=== PATIENT | male | born 1970 | race Caucasian/White ===

== ENCOUNTER 2021-02-06 05:17 | Day surgery (SDC) | payer BC ==
[2021-01-30 16:32] LABS: BASOPHILS % (AUTO) 0.5 % (0-1); EOSINOPHILS # (AUTO) 0.1 X10'3 (0-0.9); EOSINOPHILS % (AUTO) 0.7 % (0-6); LYMPHOCYTES # (AUTO) 2.2 X10'3 (1.1-4.8); LYMPHOCYTES % (AUTO) 25.9 % (21-51); MEAN CORPUSCULAR HEMOGLOBIN 32.3 PG (27.0-31.0); MEAN CORPUSCULAR HGB CONC 34.4 g/dL (33.0-36.5); MEAN PLATELET VOLUME 9.8 FL (7.4-10.4); MONOCYTES # (AUTO) 0.8 X10'3 (0-0.9); MONOCYTES % (AUTO) 9.1 % (2-12); NEUTROPHILS # (AUTO) 5.3 X10'3 (1.8-7.7); NEUTROPHILS % (AUTO) 63.8 % (42-75); PRE OP HEMATOCRIT 42.6 % (42.0-52.0); PRE OP HEMOGLOBIN 14.6 g/dL (14.0-17.9); PRE OP PLATELET COUNT 184 X10'3 (140-440); RED BLOOD COUNT 4.53 X10'6 (4.70-6.10); RED CELL DISTRIBUTION WIDTH 13.7 % (11.5-14.5)
[2021-01-30 16:49] LABS: ALBUMIN 4.4 G/DL (3.4-5.0); ALBUMIN/GLOBULIN RATIO 1.3 (1.1-1.5); ALKALINE PHOSPHATASE 124 IU/L (46-116); BLOOD UREA NITROGEN 16 MG/DL (7-18); BUN/CREATININE RATIO 16.2 (5.4-32.0); CALCIUM 9.4 MG/DL (8.5-10.1); CHLORIDE 109 MMOL/L (99-107); CREATININE 0.99 MG/DL (0.60-1.10); PRE OP ALT 45 U/L (30-65); PRE OP ANION GAP 13 (8-16); PRE OP AST 40 U/L (10-37); PRE OP BILIRUB, TOTAL 0.7 MG/DL (0.0-1.0); PRE OP GLUCOSE 86 MG/DL (70-104); PRE OP SODIUM 146 MMOL/L (135-145); TOTAL CARBON DIOXIDE 23.8 MMOL/L (24-32); TOTAL PROTEIN 7.7 G/DL (6.4-8.2); eGFR 79 ML/MIN
[2021-01-30 16:53] LABS: PRE OP POTASSIUM 4.4 MMOL/L (3.4-5.1)
[~2021-02-06] VITALS: Ht 180.3 cm; Wt 132.4 kg
[2021-02-06] VITALS (8 sets, daily range): BP systolic 95–140; BP diastolic 71–83
[~2021-02-06 05:17] MED LIST: ASPI-529 PO; ATOR20TA66 PO; BENA20TA10 PO; DILT-94 PO; ringers solution, lacted 1,000 ML IV SCH
[2021-02-06] MEDS ORDERED: ceFAZolin 2gm in dextrose, iso 50 ML IV ONE (05:30)
[2021-02-06] MEDS ORDERED: famotidine 20mg tablet PO ONE (05:30)
[2021-02-06] MEDS ORDERED: LIDOcaine 1% 30ml preserv. free vial ONE (06:41)
[2021-02-06] MEDS ORDERED: BUPIVAcaine/PF 2.5mg/ml (0.25%) 10ml vial ONE (06:41)
[2021-02-06] MEDS ORDERED: ringers solution, lacted 1,000 ML IV SCH (07:25)
[2021-02-06] MEDS ORDERED: ondansetron/PF 4mg/2ml inj IV PRN (07:25)
[2021-02-06] MEDS ORDERED: labetalol 20mg/4ml (5mg/ml) syringe IV PRN (07:25)
[2021-02-06] MEDS ORDERED: proCHLORperazine 10 MG/2 ml inj IV PRN (07:25)
[2021-02-06] MEDS ORDERED: morphine 4 MG/ML inj SYRINge IV PRN (07:25)
[2021-02-06] MEDS ORDERED: hydrALAZINE 20mg/ml inj. IV PRN (07:25)
[2021-02-06] MEDS ORDERED: acetaminophen 1,000mg/100ml IV 100 ML IV PRN (07:25)
[2021-02-06] MEDS ORDERED: morphine 2 MG/ML inj. syringe IV PRN (07:25)
[2021-02-06] MEDS ORDERED: meperidine/PF 25mg/ml syringe IV PRN ×3 (07:25)
[2021-02-06] MEDS ORDERED: sevoflurane 250ml liquid IH ONE (07:33)
[2021-02-06] MEDS ORDERED: midazolam 1 mg/ML 2ml injection ONE (07:38)
[2021-02-06] MEDS ORDERED: fentaNYL /PF 50mcg/ml 5ml ampule ONE (07:39)
[2021-02-06] MEDS ORDERED: propofol inj 20 ML IV ONE (07:49)
[2021-02-06] MEDS ORDERED: rocuronium 10mg/ml inj IV ONE (07:49)
[2021-02-06] MEDS ORDERED: LIDOcaine 2% (20mg/ml) 5ml vial ONE (07:49)
[2021-02-06] MEDS ORDERED: ondansetron/PF 4mg/2ml inj ONE (07:56)
[2021-02-06] MEDS ORDERED: dexamethasone sod phosphate 4mg/ml inj. ONE (07:56)
[2021-02-06] MEDS ORDERED: glycopyrrolate 0.2mg/ml inj ONE (08:02)
[2021-02-06] MEDS ORDERED: neostigmine methylsulfate 1 MG/ML 10ml vial ONE (08:02)
[2021-02-06] MEDS ORDERED: ePHEDrine 50MG/ML INJ. ONE (08:23)
--- NOTE | 2021-02-06 08:35 | NUR ---
Received from OR via [facility], accompanied by Anesthesiologist DR. ANGEL and report given by Anesthesiologist. PATIENT WAKING UP, NO S/S OF PAIN, V/S WNL, SCD ON, 20G TO LUE, LAP SURGICAL SITE X1 TO MIDLINE ABDOMEN, CLOSED WITH DERMABOND-CDI.
[2021-02-06] MEDS ORDERED: HYDROcodone/acetaminophen 5mg/325mg tablet PO PRN (08:45)
--- NOTE | 2021-02-06 09:39 | NUR ---
PATIENT A&OX4, DENIES PAIN, VS STABLE, SCD OFF, 20G TO LUE D/C, DERMABOND TO MIDLINE-CDI. I HAVE REVIEWED D/C ORDERS WITH PATIENT-ALL QUESTIONS ANSWERED AND HAS VERBALIZED UNDERSTANDING. PATIENT D/C HOME WITH ALL BELONGINGS AND DAD GAVE TRANSPORT.
== END 2021-02-06 09:35 | disposition home or self-care (01) ==
LOC: PAS 05:17
PROVIDERS: ATTEND Surgery
DX: K43.6 Other and unspecified ventral hernia with obstruction, without gangrene (principal); I10 Essential (primary) hypertension; I48.91 Unspecified atrial fibrillation; Z79.899 Other long term (current) drug therapy; Z98.890 Other specified postprocedural states; Z20.822 Contact with and (suspected) exposure to COVID-19
CPT/HCPCS: 36415; 49561; 49568; 80053; 82948; 85025; 93005; C1781; J1100; J2001; J2250; J2405; J2704; J2710; J3010; J3490; J7120; U0003; U0005; Z7506; Z7508; Z7512; A4215; A4618; A7000